=== PATIENT | female | born 1945 | race Caucasian/White ===

== ENCOUNTER → 2017-02-28 | Outpatient (CLI) | payer OTHER, MEDICAID ==
[2014-02-02 13:30] VITALS: BP 136/78
--- NOTE | 2017-02-28 13:56 | RAD ---
HISTORY: Shortness of breath Study: PA and lateral chest Comparison: March 06, 2016 Findings: The trachea is midline. The cardiac silhouette is enlarged. No congestive heart failure is noted. Th e alonso are normal.. The lungs are clear without focal infiltrate or effusion. The bony thorax is un remarkable. IMPRESSION: 1. Cardiomegaly without congestive heart failure 2. Lungs clear Reported By:
== END | disposition home or self-care (01) | DRG 204 ==
LOC: RAD 11:57
PROVIDERS: ATTEND Nurse Practitioner Family
DX: R06.02 Shortness of breath (principal); J20.9 Acute bronchitis, unspecified; I51.7 Cardiomegaly
CPT/HCPCS: 71020

== ENCOUNTER → 2017-03-24 | Outpatient (CLI) | payer OTHER, MEDICAID ==
[2014-02-02 13:30] VITALS: BP 136/78
--- NOTE | 2017-03-24 14:40 | RAD ---
HISTORY: Screen, breast pain Study: Chest PA and lateral Comparison: February 28, 2017 Findings: The trachea is midline. The cardiac silhouette is mildly enlarged. No congestive heart failure is no anushka.. The lungs are clear without focal infiltrate or effusion. The bony thorax is unremarkable. IMPRESSION: 1. Cardiomegaly without congestive heart failure 2. Lungs clear Reported By:
--- NOTE | 2017-03-24 18:45 | MG ---
HISTORY: SCREENING Comparison: March 21, 2016 FINDINGS: Bilateral CC and MLO projections of the right and left breast were obtained. Heterogeneously dense f ibroglandular tissue is seen to be present. No significant architectural distortion, mass or cluster ed microcalcifications can be observed to suggest malignancy. No skin thickening or nipple retractio n is appreciated. No pathological lymphadenopathy can be identified. Benign-appearing calcification s scattered throughout the right and left breasts are observed. IMPRESSION: NO RADIOGRAPHIC EVIDENCE OF MALIGNANCY. ACR CATEGORY: 2 - benign findings. FOLLOW-UP EXAM 1 YEAR. Diagnostic CAD was utilized and reviewed. * 0 (ZERO) - ASSESSMENT INCOMPLETE; ADDITIONAL IMAGING IS NEEDED. * 1/1 (ONE) - NEGATIVE. * 2/II (TWO) - BENIGN FINDINGS. * 3/III (THREE) - PROBABLY BENIGN FINDING; SHORT INTERVAL FOLLOW-UP SUGGESTED. * 4/IV (FOUR) - SUSPICIOUS ABNORMALITY; BIOPSY SHOULD BE CONSIDERED. * 5/V - HIGHLY SUSPICIOUS OF MALIGNANCY; BIOPSY SHOULD BE PERFORMED. A NEGATIVE X-RAY REPORT SHOULD NOT DELAY BIOPSY IF A DOMINANT OR CLINICALLY SUSPICIOUS MASS IS PRESENT; 4 TO 8 PERCENT OF CANCERS ARE NOT IDENTIFIED BY X-RAY. A NEGA TIVE REPORT MAY REINFORCE THE CLINICAL IMPRESSION. ADENOSIS AND DENSE BREASTS MAY OBSCURE AN UNDERLY ING NEOPLASM. Reported By:
== END | disposition home or self-care (01) | DRG 204 ==
LOC: RAD 08:59
PROVIDERS: ATTEND Nurse Practitioner Family
DX: R06.02 Shortness of breath (principal); Z12.31 Encounter for screening mammogram for malignant neoplasm of breast; I51.7 Cardiomegaly
CPT/HCPCS: 71020; 77067

== ENCOUNTER → 2017-04-22 | Outpatient (CLI) | payer OTHER, MEDICAID ==
[2014-02-02 13:30] VITALS: BP 136/78
--- NOTE | 2017-04-23 12:36 | RAD ---
HISTORY: Low back pain Study: 5 views of the lumbar spine Comparison: None. Findings: Normal alignment without subluxation or listhesis. Disk heights are maintained. Vertebral body heigh ts are normal. Facet arthropathy of the lower lumbar spine. Sacroiliac joints are unremarkable. No ev idence for acute fracture can be identified. IMPRESSION: 1. Lower lumbar spine facet arthropathy. Reported By:
== END | disposition home or self-care (01) ==
LOC: RAD 12:01
PROVIDERS: ATTEND Nurse Practitioner Family
DX: M54.17 Radiculopathy, lumbosacral region (principal); M51.36 Other intervertebral disc degeneration, lumbar region; M12.88 Other specific arthropathies, not elsewhere classified, other specified site
CPT/HCPCS: 72110

== ENCOUNTER → 2017-05-05 | Outpatient (CLI) | payer OTHER, MEDICAID ==
[2014-02-02 13:30] VITALS: BP 136/78
--- NOTE | 2017-05-05 16:38 | MRI ---
MRI SPINE LUMBAR WITHOUT CONTRAST CLINICAL HISTORY: 71-year-old female with chronic low back pain radiating into the bilateral lower ex tremities. COMPARISON: Radiographs lumbar spine 04/22/2017. Technique: Multiplanar, multisequence MRI images of the lumbar spine were obtained without the admin istration of contrast. FINDINGS: The most caudad, fully-formed intervertebral disc will be labeled L5-S1 for the purpose of this dictation. There is normal lumbar lordosis. Subtle degenerative anterolisthesis L4 on L5. There is preservation of vertebral body and disc space height. Suspected hemangioma L3 with type 2 endplate changes L5-S1. Remaining vertebral marrow signal is normal. Intervertebral disc signal is normal. Co rd signal is normal. The conus medullaris is normal in signal characteristics and morphology and term inates at the L2 level. T11-T12: Small symmetric disc bulge without central canal or neural foraminal stenosis. T12-L1: Moderate symmetric disc bulge with mild facet hypertrophy and thickened flavum without centra l canal or neural foraminal stenosis. L1-L2: Moderate symmetric disc bulge with mild facet hypertrophy and thickened ligamentum flavum with out central canal or neural foraminal stenosis. L2-L3: Large symmetric disc bulge with moderate facet hypertrophy and mild thickening of ligamentum f lavum without central canal or neural foraminal stenosis. L3-L4: Large mid disc bulge with moderate facet hypertrophy and thickened flavum without central semaj l or neural foraminal stenosis. L4-L5: Large symmetric disc bulge with severe facet hypertrophy and thickened ligamentum flavum with fluid in the facet joints. Buckled ligamentum flavum contacts the dorsal aspect of the exiting L4 ner ve roots bilaterally. Disc bulge and buckle flavum produce flattening of the ventral dorsal aspects o f the transiting L5 nerve roots bilaterally. No significant neural foraminal or central canal stenosi s. L5-S1: Large symmetric disc bulge with severe facet hypertrophy and thickening ligamentum flavum. The re is compressive deformity of the ventral dorsal aspects of the exiting right L5 and transiting S1 n erve roots. Right L5 and S1 nerve roots are contiguous to the level of the right L5-S1 neural foramen . Disc bulge contacts the ventral aspect of the exiting left L5 nerve root. No significant central ca nal stenosis with mild right neural foraminal stenosis. Paraspinous soft tissues demonstrate mild bilateral perinephric stranding and trace perinephric fluid . Remaining paraspinous soft tissues are unremarkable. IMPRESSION: 1. 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 2. See level by level descriptions above. Reported By:
== END | disposition home or self-care (01) | DRG 552 ==
LOC: RAD 14:08
PROVIDERS: ATTEND Nurse Practitioner Family
DX: M54.17 Radiculopathy, lumbosacral region (principal); M51.36 Other intervertebral disc degeneration, lumbar region; R26.2 Difficulty in walking, not elsewhere classified; M51.24 Other intervertebral disc displacement, thoracic region; M51.26 Other intervertebral disc displacement, lumbar region
CPT/HCPCS: 72148